=== PATIENT | female | born 1975 | race American Indian/Alaskan Native ===

== ENCOUNTER 2021-02-14 04:41 | Emergency (ER) | payer OTHER ==
[2021-02-14] MEDS ORDERED: HYDROmorphone 2 MG/1 ML INJ IV ONE (04:58)
[2021-02-14] MEDS ORDERED: SODIUM CHLORIDE 0.9% 1000 ML 1,000 ML IV ONE (04:58)
[2021-02-14] MEDS ORDERED: ONDANSETRON 4 MG/2 ML INJ IV ONE (04:58)
[2021-02-14 05:51] LABS: Bacteria,Urine 1+ /HPF (Negative); Bilirubin,Urine NEG (Negative); Blood,Urine NEG (Negative); Color,Urine Amber (Yellow); Mucus,Urine FEW /HPF; Protein,Urine <15 mg/dL mg/dL (Negative)
[2021-02-14 05:51] LABS: Basophils # (Auto) 0.1 K/mm3 (0.0-0.1); Basophils % (Auto) 0.8 % (0.0-1.8); Eosinophils # (Auto) 0.1 K/mm3 (0.0-0.4); Eosinophils % (Auto) 1.5 % (0.0-4.3); Hematocrit 40.4 % (30.3-42.9); Hemoglobin 14.2 gm/dl (10.1-14.3); Lymphocytes # (Auto) 2.2 K/mm3 (1.2-5.4); Lymphocytes % (Auto) 26.1 % (13.4-35.0); Mean Corpuscular HGB Conc 35 % (30-34); Mean Corpuscular Volume 84 fl (79-97); Monocytes # (Auto) 0.5 K/mm3 (0.0-0.8); Monocytes % (Auto) 6.5 % (0.0-7.3); Platelet Count 499 K/mm3 (140-440); Red Blood Count 4.81 M/mm3 (3.65-5.03); Red Cell Distribution Width 14.2 % (13.2-15.2)
[2021-02-14] MEDS ORDERED: HYDROmorphone 1 MG/1 ML INJ IV ONE (06:04)
[2021-02-14 06:11] LABS: Alanine Aminotransferase 13 units/L (7-56); Albumin 4.1 g/dL (3.9-5); Blood Urea Nitrogen 5 mg/dL (7-17); Calcium 8.8 mg/dL (8.4-10.2); Hemolysis Index 10
[2021-02-14 06:12] LABS: BUN/Creatinine Ratio 8
[2021-02-14] MEDS ORDERED: POTASSIUM CHLORIDE ER 20 MEQ TAB PO ONE (06:33)
[2021-02-14] MEDS ORDERED: METOCLOPRAMIDE 10 MG/2 ML INJ IV ONE (06:34)
--- NOTE | 2021-02-14 06:38 | Emergency Department Report ---
HPI - General Chief Complaint: Abdominal Pain Time Seen by Provider: 02/14/21 06:26 - HPI HPI: Room 21 The patient is a 45-year-old female presents with a chief complaint of "I am having a flareup." Patient states last night she felt constipated but went to sleep. The patient states she awakened at 04: 00 this morning to go to the bathroom when she developed lower abdominal and low back cramping consistent with her previous flares of Crohn's disease. Patient states she developed diarrhea this morning in addition to nausea vomiting diarrhea. Patient denies history of fever. The patient was administered analgesia by the overnight ED physician prior to my arrival ED Past Medical Hx - Past Medical History Hx Hypertension: Yes Additional medical history: crohns vs ulcerative colitis - Surgical History Additional Surgical History: hysterectomy - Family History Family history: no significant - Social History Smoking Status: Never Smoker Substance Use Type: None (Denies illicit drug use), Alcohol (Occasional) - Medications Home Medications: Home Medications Medication Instructions Recorded Confirmed Last Taken Type HYDROcodone/APAP 5-325 [[place] 1 - 2 each PO Q6HR PRN #10 tablet 02/14/21 Unknown Rx 5/325] Promethazine [Phenergan] 25 mg PO Q6HR PRN #20 tab 02/14/21 Unknown Rx Promethazine [Phenergan] 25 mg [place] Q6HR PRN #5 supp.rect 02/14/21 Unknown Rx ED Review of Systems ROS: Stated complaint: ABDOMINAL PAIN Other details as noted in HPI Constitutional: denies: fever Eyes: denies: eye pain ENT: denies: throat pain Respiratory: no symptoms reported Cardiovascular: denies: chest pain Endocrine: no symptoms reported Gastrointestinal: abdominal pain, nausea, vomiting, diarrhea Genitourinary: denies: dysuria Musculoskeletal: back pain Neurological: denies: headache Physical Exam - Physical Exam Vital Signs: Vital Signs 02/14/21 04:46 Temperature 97.7 F Pulse Rate 75 Respiratory 18 Rate Blood Pressure 149/87 [Left] O2 Sat by Pulse 99 Oximetry Physical Exam: GENERAL: The patient is well-developed well-nourished female lying on stretcher not appearing to be in acute distress. [] HEENT: Normocephalic. Atraumatic. Extraocular motions are intact. Patient has moist mucous membranes. NECK: Supple. Trachea midline CHEST/LUNGS: Clear to auscultation. There is no respiratory distress noted. HEART/CARDIOVASCULAR: Regular. There is no tachycardia. There is no gallop rub or murmur. ABDOMEN: Abdomen is soft, with tenderness to palpation in the suprapubic, midepigastric and left lower quadrant. Patient has normal bowel sounds. There is no abdominal distention. SKIN: There is no rash. There is no edema. There is no diaphoresis. NEURO: The patient is awake, alert, and oriented. The patient is cooperative. The patient has no focal neurologic deficits. The patient has normal speech. GCS 15 MUSCULOSKELETAL: There is no CVA tenderness. There is no evidence of acute injury. ED Course Vital Signs 02/14/21 04:46 Temperature 97.7 F Pulse Rate 75 Respiratory 18 Rate Blood Pressure 149/87 [Left] O2 Sat by Pulse 99 Oximetry ED Medical Decision Making - Lab Data Result diagrams: 02/14/21 05:08 02/14/21 05:08 Laboratory Tests 02/14/21 02/14/21 02/14/21 04:56 05:08 05:08 WBC 8.4 RBC 4.81 Hgb 14.2 Hct 40.4 MCV 84 MCH 30 MCHC 35 H RDW 14.2 Plt Count 499 H Lymph % (Auto) 26.1 [place] % (Auto) 6.5 Eos % (Auto) 1.5 Baso % (Auto) 0.8 Lymph # (Auto) 2.2 [place] # (Auto) 0.5 Eos # (Auto) 0.1 Baso # (Auto) 0.1 Seg Neutrophils % 65.1 Seg Neutrophils # 5.5 Sodium 139 Potassium 2.9 L* Chloride 100.3 Carbon Dioxide 26 Anion Gap 16 BUN 5 L Creatinine 0.6 Estimated GFR > 60 BUN/Creatinine Ratio 8 Glucose 98 Calcium 8.8 Total Bilirubin 0.30 AST 16 ALT 13 Alkaline Phosphatase 61 Total Protein 7.7 Albumin 4.1 Albumin/Globulin Ratio 1.1 Lipase 38 HCG, Qual Urine Color Radha Urine Turbidity Clear Urine pH 7.0 Ur Specific [place] 1.021 Urine Protein <15 mg/dl Urine Glucose (UA) Neg Urine Ketones Neg Urine Blood Neg Urine Nitrite Neg Urine Bilirubin Neg Urine Urobilinogen 4.0 Ur Leukocyte Esterase Neg Urine WBC (Auto) 1.0 Urine RBC (Auto) 2.0 U Epithel Cells (Auto) 3.0 Urine Bacteria (Auto) 1+ Urine Mucus Few 02/14/21 05:08 WBC RBC Hgb Hct MCV MCH MCHC RDW Plt Count Lymph % (Auto) [place] % (Auto) Eos % (Auto) Baso % (Auto) Lymph # (Auto) [place] # (Auto) Eos # (Auto) Baso # (Auto) Seg Neutrophils % Seg Neutrophils # Sodium Potassium Chloride Carbon Dioxide Anion Gap BUN Creatinine Estimated GFR BUN/Creatinine Ratio Glucose Calcium Total Bilirubin AST ALT Alkaline Phosphatase Total Protein Albumin Albumin/Globulin Ratio Lipase HCG, Qual Negative Urine Color Urine Turbidity Urine pH Ur Specific [place] Urine Protein Urine Glucose (UA) Urine Ketones Urine Blood Urine Nitrite Urine Bilirubin Urine Urobilinogen Ur Leukocyte Esterase Urine WBC (Auto) Urine RBC (Auto) U Epithel Cells (Auto) Urine Bacteria (Auto) Urine Mucus - Radiology Data Radiology results: report reviewed (CT abdomen pelvis), image reviewed (CT abdomen pelvis) [place] [address] Cat Scan Report Signed Patient: ESMER PARIKH MR#: [id number] : 1975 Acct:[id number] Age/Sex: 45 / F ADM Date: 02/14/21 Loc: ED Attending Dr: Ordering Physician: SAMEER MUSA MD Date of Service: 02/14/21 Procedure(s): CT abdomen pelvis w con Accession Number(s): [id number] cc: SAMEER MUSA MD CT ABDOMEN AND PELVIS WITH CONTRAST INDICATION: Lower abd pain with N/V/D. Hx of Crohn's Disease [id number] 100 ML CONTRAST: 100 cc Omnipaque 300 IV COMPARISON: None available. All CT scans at this location are performed using CT dose reduction for ALARA by means of automated exposure control. FINDINGS: Lung bases show mild atelectatic change in the left but no definite pneumonic infiltrates. No pneumoperitoneum is seen. No free fluid is noted. No lymphadenopathy is seen. Liver shows slight fatty infiltration and is mildly enlarged with a length of 18.4 cm. A lesion in the lateral segment of the left lobe measuring 2.1 cm has appearance suggesting peripheral e nhancement of a cavernous hemangioma. Small indeterminate hypodensity is seen in the posterior segment of the right lobe. Gallbladder and bile ducts appear within normal limits. No masses are seen. No urinary obstructive changes are noted. Appendix is not visualized. No evidence of bowel obstruction is seen. No definite bowel wall thickening is noted. Terminal ileum shows no definite abnormalities. No inflammatory changes are seen. Only a few small mesenteric nodes are seen measuring up to 8 mm short axis diameter in the right lower quadrant minimal haziness in the central mesentery which is nonspecific. IMPRESSION: 1. No def inite acute abnormalities are seen 2. Probably benign lesions in the liver as above. Follow-up may be useful. Signer Name: Miguel Saucedo MD Signed: 02/14/2021 7:54 AM Workstation Name: [id number] Transcribed By: ÁNGELA Dictated By: Miguel Saucedo MD Electronically Authenticated By: Miguel Saucedo MD Signed Date/Time: 02/14/21 0754 DD/ TD/TT: Print Cancel - Differential Diagnosis Crohn's flare, diverticulitis, UTI, gastroenteritis Critical care attestation.: If time is entered above; I have spent that time in minutes in the direct care of this critically ill patient, excluding procedure time. ED Disposition Clinical Impression: Acute abdominal pain, Hypokalemia Disposition: 01 HOME / SELF CARE / HOMELESS Is pt being admited?: No Does the pt Need Aspirin: No Condition: Stable Instructions: Abdominal Pain (ED), Hypokalemia, Abdominal Pain, Adult, [id number] Additional Instructions: Return to the emergency department should you develop worsening symptoms, inability to tolerate food or liquids, high fever or any other concerns Prescriptions: HYDROcodone/APAP 5-325 [[place] 5/325] 1 - 2 each PO Q6HR PRN #10 tablet PRN Reason: Pain Promethazine [Phenergan] 25 mg PO Q6HR PRN #20 tab PRN Reason: Nausea Promethazine [Phenergan] 25 mg [place] Q6HR PRN #5 supp.rect PRN Reason: Vomiting Referrals: Your complaint investigations officer, [facility] [Other] - 3-5 Days Time of Disposition: 08:21
--- NOTE | 2021-02-14 07:58 | Cat Scan Report ---
CT ABDOMEN AND PELVIS WITH CONTRAST INDICATION: Lower abd pain with N/V/D. Hx of Crohn's Disease [id number] 100 ML CONTRAST: 100 cc Omnipaque 300 IV COMPARISON: None available. All CT scans at this location are performed using CT dose reduction for ALARA by means of automated e xposure control. FINDINGS: Lung bases show mild atelectatic change in the left but no definite pneumonic infiltrates. No pneumoperitoneum is seen. No free fluid is noted. No lymphadenopathy is seen. Liver shows slight fatty infiltration and is mildly enlarged with a length of 18.4 cm. A lesion in th e lateral segment of the left lobe measuring 2.1 cm has appearance suggesting peripheral enhancement of a cavernous hemangioma. Small indeterminate hypodensity is seen in the posterior segment of the ri ght lobe. Gallbladder and bile ducts appear within normal limits. No masses are seen. No urinary obst ructive changes are noted. Appendix is not visualized. No evidence of bowel obstruction is seen. No definite bowel wall thickeni ng is noted. Terminal ileum shows no definite abnormalities. No inflammatory changes are seen. Only a few small mesenteric nodes are seen measuring up to 8 mm short axis diameter in the right lower quad rant minimal haziness in the central mesentery which is nonspecific. IMPRESSION: 1. No definite acute abnormalities are seen 2. Probably benign lesions in the liver as above. Follow-up may be useful. Signer Name: Miguel Saucedo MD Signed: 02/14/2021 7:54 AM Workstation Name: [id number]
[2021-02-14 08:41] VITALS: BP 116/69
== END 2021-02-14 08:41 | disposition home or self-care (01) ==
LOC: ED 04:41
DX: R10.32 Left lower quadrant pain (principal); M54.50 Low back pain, unspecified; E87.6 Hypokalemia; I10 Essential (primary) hypertension; Z90.710 Acquired absence of both cervix and uterus; Z72.89 Other problems related to lifestyle; Z79.899 Other long term (current) drug therapy; Z91.018 Allergy to other foods; Z91.040 Latex allergy status
CPT/HCPCS: 36415; 74177; 80053; 81001; 83690; 84703; 85025; 96361; 96374; 96375; 96376; 99284; J1170; J2405; J2765; J7030; Q9967